=== PATIENT | female | born 2005 | race Two or more races ===

== ENCOUNTER → 2025-09-14 | Outpatient (REF) | payer OTHER, SELFPAY | LOC: M SFHCCLAY 14:17 | PROVIDERS: ATTEND Nurse Practitioner Family | DX: Z90.49 Acquired absence of other specified parts of digestive tract (principal); N91.2 Amenorrhea, unspecified; T81.49XA Infection following a procedure, other surgical site, initial encounter; F41.8 Other specified anxiety disorders; Z53.9 Procedure and treatment not carried out, unspecified reason ==